=== PATIENT | female | born 1990 | race African-American/Black ===

== ENCOUNTER → 2019-08-01 | Day surgery (SDC) | payer SELFPAY ==
[~2019-08-01] MED LIST: ACETAMINOPHEN 1000 MG/100 ML IV ONE; CEFAZOLIN SOD 1 GM/NS 50ML 50 ML IV ONE; DEXAMETHASONE SOD PHOS INJ 4 MG/ML VIAL ONE; EPINEPHRINE HCL 1:1000 1ML 1 MG/ML AMP ONE; FENTANYL CITRATE/PF 100MCG/2 ML INJ ONE; GLYCOPYRROLATE1 MG PO; HYDROMORPHONE 2MG/ML 2 MG/ML ML ONE; KETAMINE HCL INJ 50 MG/ML 10 ML VIAL ONE; KETOROLAC TROMETHAMINE 30 MG/ML VIAL ONE; LIDOCAINE HCL 1% LOCAL INJ 20 ML VIAL ONE; LIDOCAINE HCL 2% LOCAL INJ 5 ML SDV VIAL INJ ONE; MIDAZOLAM HCL 2 MG/2 ML VIAL ONE; MORPHINE SULFATE INJ 10 MG/ML ONE; MULTI-VITAMIN1 EACH PO; ONDANSETRON HCL INJ 2MG/ML 2ML 2 MG/ML VIAL ONE; PROPOFOL IV EMULSION 10 MG/ML 20 ML VIAL ONE; ROCURONIUM BROMIDE 10 MG/ML 5ML VIAL ONE; SEVOFLURANE INHAL SOLN 250 ML PEN BTL ONE
--- OUTSIDE RECORDS SUMMARY | 2019-08-01 06:24 | XMS REPORT ---
Author Author Admin, Benedict Organization [facility] Address Unknown Phone Unavailable Allergies, Adverse Reactions, Alerts Allergy Name Reaction Description Start Date Severity Status Provider Allergies Unknown Conditions or Problems Problem Name Problem Code Onset Date Status Entry Date Provider Comment Standard Description Annotate Problems Unknown Medication List Medication Instructions Start Date Stop Date Generic Name NDC Status Provider Patient Instruction Drug Treatment Unknown - unknown
--- NOTE | 2019-08-01 07:20 | NUR ---
SPIRITUAL CARE - Pre-Surgery Assessment: Pt in bed. Pt reported supportive attention from family and friends. Intervention: I provided pastoral presence, hospitality, and sympathetic listening. I acquainted pt with availability of renal dietitian while hospitalized. Outcome: Pt expressed appreciation for visit. No need for follow up indicated at this time. RODOLFO Patellain Spiritual Care Department O: [phone] Pager: [phone] ([phone] number calling from)
[2019-08-01 16:00] VITALS: BP 119/71
--- NOTE | 2019-08-01 20:51 | Operative Report ---
DATE OF PROCEDURE: 08/01/2019 SURGEON: Sahil Gurrola MD PREOPERATIVE DIAGNOSES: 1. Breast ptosis, bilateral. 2. Flank and abdominal lipodystrophy. POSTOPERATIVE DIAGNOSES: 1. Breast ptosis, bilateral. 2. Flank and abdominal lipodystrophy. PROCEDURES: 1. Bilateral mastopexy. 2. Suction-assisted lipectomy of bilateral flanks and abdomen. ANESTHESIA: General. HISTORY: The patient is a 29-year-old female, who has significant grade 3 breast ptosis with asymmetric inframammary fold. She also has a localized adiposity of the bilateral upper flanks and the abdomen. The risks, benefits, and alternatives of treatment were discussed with the patient in detail. She has signed the [employer] consent form for aforementioned procedures. PROCEDURE IN DETAIL: The patient was marked preoperatively in the holding area in the upright position. She was made aware of the discrepancy in height of the inframammary fold, hence that the nipples would be at a separate height once the mastopexy had been performed. The areas to be suctioned, were then marked out as well. The patient was brought to the operating theater and after the induction of adequate general anesthesia, she was prepped and draped in a supine position. A Sharma catheter had been placed and Venodyne compression boots have been placed and a time-out was performed. The procedure was begun by circumscribing both nipple-areolar complexes with a 42 mm cookie cutter. At this point, the central pedicles were de-epithelialized in a standard fashion and they were made hemostatic using electrocautery. At this point, the pedicles were released from their medial, lateral, and central attachments superiorly using the electrocautery. The incisions were taken down to the prepectoral fascia. At this point, the flaps of the upper chest were then undermined widely using the electrocautery in the prepectoral plane. At this juncture, the flaps were tailor tacked closed and the patient was made upright as best possible with the head of bed at approximately 45-50 degrees. The skin was tailor tacked using surgical clips until a satisfactory contour had been obtained. It was noted that she needed both vertical and horizontal correction of the skin laxity. At this point, the surgical clips were removed and the skin islands were marked out and they were incised through the skin and the subcutaneous tissue and then bleeding controlled using electrocautery. The skin flaps were then removed. The wounds were irrigated with bacteriostatic saline and they were temporarily tacked closed again with surgical clips. The patient was then made as upright as possible and the site of the nipple-areolar complexes were marked out and it was noted that the inframammary folds were at different heights and thus the nipples were at different height compared to the right side and the left side. The 42 mm cookie cutters were used to circumscribe the site of the nipple-areolar complexes. The patient was made supine. The nipple-areolar complexes were incised through the skin and subcutaneous tissue and then the core of tissue was then removed and the wounds were made hemostatic using electrocautery. All the surgical clips were removed. The pedicles were inspected and the wounds were inspected for hemostasis, which was made absolute. At this juncture, the incisions were closed with 3-0 Monocryl in an interrupted buried fashion to approximate the deep dermis and 4-0 Monocryl in a running subcuticular fashion. At the completion of the procedure, the nipple-areolar complexes were noted to be well vascularized and the skin flaps without undue tension. The flanks on either side of the chest wall were tumesced through incisions made with a 15 blade. Approximately 300-350 mL of standard [place] formula was used to tumesce the tissues. The abdomen was tumesced through several incision sites made with the 15 blade. The incision sites were designed to allow maximum cross-hatching of the subcutaneous space. Approximately 1.5 liters was used to tumesce the subcutaneous space of the abdomen. After waiting an appropriate amount of time for maximum vasoconstrictive effect, the flanks were liposuctioned with first 3 mm and then 4 mm cannulas for feathering purposes. Approximately 100-125 mL of subcutaneous fat was obtained from each suction site. The abdomen was then suctioned initially with a 4 mm Dona-Rehan cannula followed by a 3 mm cannula. The cross-hatching was performed in order to allow maximum cosmetic affect by reducing the subcutaneous space, approximately 750 mL was obtained from the abdomen. The liposuction sites were closed with 5-0 chromic in an interrupted fashion. Steri-Strips were applied on all the incisions. The patient was placed in a postsurgical gently compressing bra and she was placed in an abdominal binder with padding from abdominal pads. Estimated blood loss for the entire procedure was between 100-125 mL. She tolerated the procedure well and was brought to the recovery room in satisfactory condition and discharged with a postoperative instruction sheet as well as a followup appointment. MD SURESH Almazan/DIONICIO /[id number]
== END | disposition home or self-care (01) ==
LOC: OR 06:20
PROVIDERS: ATTEND Plastic Surgery
DX: N64.81 Ptosis of breast (principal); E65 Localized adiposity; Z01.812 Encounter for preprocedural laboratory examination
CPT/HCPCS: 15877; 19316; 81025; J0131; J0171; J0690; J1100; J1170; J1885; J2001 ×2; J2250; J2270; J2405; J2704; J3010